=== PATIENT | female | born 1980 | race Two or more races ===

== ENCOUNTER 2017-10-10 03:53 | Observation (INO) | payer MEDICAID ==
[2017-10-10] MEDS ORDERED: IPRATROPIUM/ALBUTEROL 3 ML DEYVIAL ONE (04:00)
[2017-10-10] MEDS ORDERED: IPRATROPIUM/ALBUTEROL 3 ML DEYVIAL IH ONE (04:00)
[2017-10-10] MEDS ORDERED: ALBUTEROL 3 ML DEYVIAL ONE (04:09)
[2017-10-10] MEDS ORDERED: MAGNESIUM SULF 2 GM/WATER 50 ML BAG IV ONE (04:16)
[2017-10-10] MEDS ORDERED: ALBUTEROL 3 ML DEYVIAL IH ONE ×2 (04:17→05:30)
[2017-10-10] MEDS ORDERED: MAGNESIUM SULF 2 GM/WATER 50 ML IV ONE (04:17)
--- NOTE | 2017-10-10 05:34 | EDPHY ---
H & P Stated Complaint: ASTHMA EXACERBATION ALL DAY NOT BETTER WITH MDI ALBUTEROL Time Seen by Provider: 10/10/17 03:55 HPI/ROS: HPI The patient presents with concern for asthma exacerbation, presenting with shortness of breath for the last 1 day. The patient is brought in by ambulance after having wheezing with shortness of breath throughout the course of the day today, getting progressively worse. She has been using albuterol inhaler at home multiple times today without any improvement. She is unsure what her asthma triggers are. She was picked up by paramedics with a room air sat of 84% , improved with nebulizers. Received Solu-Medrol. She has a 1/2 pack per day smoker. She has been admitted to the hospital about 4-5 times for asthma exacerbation. She has never been intubated.. REVIEW OF SYSTEMS Constitutional: No fever, no chills. Eyes: No discharge. ENT: No sore throat. Cardiovascular: No chest pain, no palpitations. Respiratory: No cough, no shortness of breath. Gastrointestinal: No abdominal pain, no vomiting. Genitourinary: No hematuria. Musculoskeletal: No back pain. Skin: No rashes. Neurological: No headache. PMHx: History of asthma Soc Hx: 1/2 pack per day smoker PHYSICAL General Appearance: Alert, no distress Eyes: Pupils equal and round no pallor or injection ENT, Mouth: Mucous membranes moist Respiratory: Tachypneic, retractions are present, diminished breath sounds throughout with prolonged I to E time Cardiovascular: Regular rate and rhythm Gastrointestinal: Abdomen is soft and non-tender, no masses, bowel sounds normal Neurological: A&O, moves all extremities Skin: Warm and dry, no rashes Musculoskeletal: Neck is supple non tender Extremities: symmetrical, full range of motion Psychiatric: Patient is oriented X 3, there is no agitation Source: Patient Exam Limitations: No limitations - Personal History Current Tetanus/Diphtheria Vaccine: Yes Current Tetanus Diphtheria and Acellular Pertussis (TDAP): Yes Tetanus Vaccine Date: 2008 - Medical/Surgical History Hx Asthma: Yes Hx Chronic Respiratory Disease: No Hx Diabetes: No Hx Cardiac Disease: No Hx Renal Disease: No Hx Cirrhosis: No Hx Alcoholism: No Hx HIV/AIDS: No Hx Splenectomy or Spleen Trauma: No Other PMH: tubal ligation 2008, chronic back pain due to herniated disc - Social History Smoking Status: Light smoker Constitutional: Initial Vital Signs Temperature (C) 36.8 C 10/10/17 03:57 Heart Rate 121 H 10/10/17 03:57 Respiratory Rate 28 H 10/10/17 03:57 Blood Pressure 108/83 H 10/10/17 03:57 O2 Sat (%) 91 L 10/10/17 03:57 O2 Delivery Mode Nasal Cannula O2 (L/minute) 2 Allergies/Adverse Reactions: NSAIDS (Non-Steroidal Anti-Inflamma Allergy (Intermediate, Verified 10/10/17 04: 02) Home Medications: Medication Instructions Recorded Celexa 10/03/13 Albuterol Hfa Anes Only [Proair 11/11/13 Hfa Icu (RX)] Fluticasone/Salmeter 100/50Mcg 11/11/13 [Advair 100/50 (RX)] Acetaminophen [Tylenol Tablet] 1,000 mg PO Q6 PRN #30 tab 05/02/14 Medical Decision Making - Diagnostics EKG Interpretation: Chest x-ray single view shows hyperinflation with peribronchial thickening, interpreted by me, radiology interpretation is pending. Differential Diagnosis: 37-year-old female with history of asthma presents with shortness of breath and wheezing for the last 1 day. She has been using albuterol without any improvement. Room air sat was 84% per paramedics. She has been given a DuoNeb and Solu-Medrol. On exam, she is in mild respiratory distress with retractions and diminished breath sounds throughout. She will be started on a 2nd DuoNeb here. Differential diagnosis includes asthma exacerbation, pneumothorax, pneumonia, pulmonary embolism. The patient was observed with minimal improvement in her clinical condition. She was given additional albuterol with magnesium which helped her somewhat. She was able to rest though was still slightly tachypneic. Oxygen saturations are 95% on 2 L though she does desaturate when she is off of oxygen. Chest x-ray demonstrates hyperinflation without any pneumonia. Labs are unremarkable. Given her ongoing symptoms after 2 and 0.5 hr of monitoring I plan to admit her. On exam, she is still diminished throughout with wheezes present and mild tachypnea. I have discussed the case with the hospitalist Dr. Meza and we will admit her. Critical Care Time: CRITICAL CARE Critical care time spent by me, Dr. Riguzzi, exclusively with this patient was 30 minutes, exclusive of PA time and exclusive of procedures. The organ system at risk was respiratory and I gave magnesium, continuous albuterol nebulizer treatments, admitted the patient to prevent worsening of the patients condition. - Data Points Laboratory Results: Laboratory Results 10/10/17 03:55 10/10/17 03:55 10/10/17 10/10/17 10/10/17 03:55 03:55 03:55 WBC 12.23 10^3/uL H 10^3/uL (3.80-9.50) RBC 5.52 10^6/uL H 10^6/uL (4.18-5.33) Hgb 10.6 g/dL L g/dL (12.6-16.3) Hct 37.4 % L % (38.0-47.0) MCV 67.8 fL L fL (81.5-99.8) MCH 19.2 pg L pg (27.9-34.1) MCHC 28.3 g/dL L g/dL (32.4-36.7) RDW 16.5 % H % (11.5-15.2) Plt Count 530 10^3/uL H 10^3/uL (150-400) MPV 10.0 fL fL (8.7-11.7) Neut % (Auto) 61.9 % % (39.3-74.2) Lymph % (Auto) 21.4 % % (15.0-45.0) [place] % (Auto) 7.0 % % (4.5-13.0) Eos % (Auto) 8.0 % H % (0.6-7.6) Baso % (Auto) 1.5 % % (0.3-1.7) Nucleat RBC Rel Count 0.0 % % (0.0-0.2) Absolute Neuts (auto) 7.57 10^3/uL H 10^3/uL (1.70-6.50) Absolute Lymphs (auto) 2.62 10^3/uL 10^3/uL (1.00-3.00) Absolute Monos (auto) 0.85 10^3/uL H 10^3/uL (0.30-0.80) Absolute Eos (auto) 0.98 10^3/uL H 10^3/uL (0.03-0.40) Absolute Basos (auto) 0.18 10^3/uL H 10^3/uL (0.02-0.10) Absolute Nucleated RBC 0.00 10^3/uL 10^3/uL (0-0.01) Immature Gran % 0.2 % % (0.0-1.1) Immature Gran # 0.03 10^3/uL 10^3/uL (0.00-0.10) Platelet Estimate INCREASED H (ADEQ) Hypochromasia 2+ H Microcytic Cells 2+ H Smear Review By Pending D-Dimer 0.40 ug/mLFEU ug/mLFEU (0.00-0.50) Sodium 143 mEq/L mEq/L (135-145) Potassium 4.4 mEq/L mEq/L (3.5-5.2) Chloride 104 mEq/L mEq/L (97-110) Carbon Dioxide 25 mEq/l mEq/l (22-31) Anion Gap 14 mEq/L mEq/L (8-16) BUN 13 mg/dL mg/dL (7-23) Creatinine 0.7 mg/dL mg/dL (0.6-1.0) Estimated GFR > 60 Glucose 102 mg/dL H mg/dL (70-100) Calcium 9.4 mg/dL mg/dL (8.5-10.4) Total Bilirubin 0.7 mg/dL mg/dL (0.1-1.4) AST 33 IU/L IU/L (14-46) ALT 43 IU/L IU/L (9-52) Alkaline Phosphatase 72 IU/L IU/L (38-126) Total Protein 8.0 g/dL g/dL (6.3-8.2) Albumin 4.3 g/dL g/dL (3.5-5.0) Medications Given: Acetaminophen (Tylenol) 650 mg PO Q4HRS PRN PRN Reason: Pain, Mild/Fever, Can Take PO Stop: 04/08/18 06:33 Last Admin: 10/10/17 07:21 Dose: 650 mg Discontinued Medications Albuterol (Proventil Neb) 9 ml IH CONT ONE Stop: 10/10/17 04:18 Last Admin: 10/10/17 04:19 Dose: 9 ml Albuterol (Proventil Neb) 3 ml IH EDNOW ONE Stop: 10/10/17 05:31 Last Admin: 10/10/17 05:33 Dose: 3 ml Albuterol/Ipratropium (Duoneb) 3 ml IH EDNOW ONE Stop: 10/10/17 04:01 Last Admin: 10/10/17 04:07 Dose: 3 ml Magnesium Sulfate (Magnesium Sulf 2 Gm (Premix)) 50 mls @ 50 mls/hr IV EDNOW ONE Stop: 10/10/17 05:16 Last Admin: 10/10/17 04:19 Dose: 50 mls Departure - Departure
[2017-10-10 05:42] LABS: PLATELET COUNT 530 10^3/uL (150-400)
[2017-10-10] MEDS ORDERED: ONDANSETRON 4 MG/2 ML VIAL IVP PRN (06:34)
[2017-10-10] MEDS ORDERED: ONDANSETRON DISINTEGRATING 4 MG TAB PO PRN (06:34)
--- NOTE | 2017-10-10 06:56 | PDGENHP ---
History and Physical - Chief Complaint SOB - History of Present Illness 37 yo F w/ asthma p/w shortness of breath. Patient reports worsening around 3 days ago. She denies any infectious symptoms or sick contacts. She is a current , every day smoker and smokes about 1/2 PPD. She denies other drug use. She uses only albuterol for asthma control. When she is doing well, she has to use her albuterol inhaler every 4 or 5 hours. Over the last day she was using it every 30 minutes. She used to be on Advair in the past but stopped taking it for unclear reasons. History Information - Allergies/Home Medication List Allergies/Adverse Reactions: NSAIDS (Non-Steroidal Anti-Inflamma Allergy (Intermediate, Verified 10/10/17 04: 02) Home Medications: Celexa 10/03/13 [Last Taken Unknown] Albuterol Hfa Anes Only [Proair Hfa Icu (RX)] 11/11/13 [Last Taken Unknown] Fluticasone/Salmeter 100/50Mcg [Advair 100/50 (RX)] 11/11/13 [Last Taken Unknown] I have personally reviewed and updated: family history, medical history - Past Medical History asthma - Surgical History Reports: no pertinent surgical hx - Family History Positive for: asthma - Social History Smoking Status: Light smoker Review of Systems Review of Systems: ROS: 10pt was reviewed & negative except for what was stated in HPI & below Physical Exam Physical Exam: Temp Pulse Resp BP Pulse Ox 36.8 C 108 H 34 H 143/79 H 95 10/10/17 03:57 10/10/17 06:08 10/10/17 06:08 10/10/17 06:08 10/10/17 06:08 Constitutional: appears nourished, uncomfortable Eyes: PERRL, EOMI Ears, Nose, Mouth, Throat: moist mucous membranes, oral thrush Cardiovascular: no murmur, rub, or gallop, tachycardia Respiratory: no respiratory distress, expiratory wheeze (Diffuse) Gastrointestinal: normoactive bowel sounds, soft, non-tender abdomen Skin: warm, normal color Musculoskeletal: full muscle strength, no muscle tenderness Neurologic: AAOx3, CN II-XII Intact Psychiatric: interacting appropriately, not anxious Lab Data & Imaging Review 10/10/17 03:55 10/10/17 03:55 WBC 12.23 10^3/uL (3.80-9.50) H 10/10/17 03:55 RBC 5.52 10^6/uL (4.18-5.33) H 10/10/17 03:55 Hgb 10.6 g/dL (12.6-16.3) L 10/10/17 03:55 Hct 37.4 % (38.0-47.0) L 10/10/17 03:55 MCV 67.8 fL (81.5-99.8) L 10/10/17 03:55 MCH 19.2 pg (27.9-34.1) L 10/10/17 03:55 MCHC 28.3 g/dL (32.4-36.7) L 10/10/17 03:55 RDW 16.5 % (11.5-15.2) H 10/10/17 03:55 Plt Count 530 10^3/uL (150-400) H 10/10/17 03:55 MPV 10.0 fL (8.7-11.7) 10/10/17 03:55 Neut % (Auto) 61.9 % (39.3-74.2) 10/10/17 03:55 Lymph % (Auto) 21.4 % (15.0-45.0) 10/10/17 03:55 [place] % (Auto) 7.0 % (4.5-13.0) 10/10/17 03:55 Eos % (Auto) 8.0 % (0.6-7.6) H 10/10/17 03:55 Baso % (Auto) 1.5 % (0.3-1.7) 10/10/17 03:55 Nucleat RBC Rel Count 0.0 % (0.0-0.2) 10/10/17 03:55 Absolute Neuts (auto) 7.57 10^3/uL (1.70-6.50) H 10/10/17 03:55 Absolute Lymphs (auto) 2.62 10^3/uL (1.00-3.00) 10/10/17 03:55 Absolute Monos (auto) 0.85 10^3/uL (0.30-0.80) H 10/10/17 03:55 Absolute Eos (auto) 0.98 10^3/uL (0.03-0.40) H 10/10/17 03:55 Absolute Basos (auto) 0.18 10^3/uL (0.02-0.10) H 10/10/17 03:55 Absolute Nucleated RBC 0.00 10^3/uL (0-0.01) 10/10/17 03:55 Immature Gran % 0.2 % (0.0-1.1) 10/10/17 03:55 Immature Gran # 0.03 10^3/uL (0.00-0.10) 10/10/17 03:55 Platelet Estimate INCREASED (ADEQ) H 10/10/17 03:55 Hypochromasia 2+ H 10/10/17 03:55 Microcytic Cells 2+ H 10/10/17 03:55 D-Dimer 0.40 ug/mLFEU (0.00-0.50) 10/10/17 03:55 Sodium 143 mEq/L (135-145) 10/10/17 03:55 Potassium 4.4 mEq/L (3.5-5.2) 10/10/17 03:55 Chloride 104 mEq/L (97-110) 10/10/17 03:55 Carbon Dioxide 25 mEq/l (22-31) 10/10/17 03:55 Anion Gap 14 mEq/L (8-16) 10/10/17 03:55 BUN 13 mg/dL (7-23) 10/10/17 03:55 Creatinine 0.7 mg/dL (0.6-1.0) 10/10/17 03:55 Estimated GFR > 60 10/10/17 03:55 Glucose 102 mg/dL (70-100) H 10/10/17 03:55 Calcium 9.4 mg/dL (8.5-10.4) 10/10/17 03:55 Total Bilirubin 0.7 mg/dL (0.1-1.4) 10/10/17 03:55 AST 33 IU/L (14-46) 10/10/17 03:55 ALT 43 IU/L (9-52) 10/10/17 03:55 Alkaline Phosphatase 72 IU/L (38-126) 10/10/17 03:55 Total Protein 8.0 g/dL (6.3-8.2) 10/10/17 03:55 Albumin 4.3 g/dL (3.5-5.0) 10/10/17 03:55 Visualized and Interpreted Chest x-ray results: Yes Chest X-Ray results: no infiltrate Assessment & Plan Assessment: 37 yo F w/ asthma presents w/ acute exacerbation. Plan: 1. Asthma with acute exacerbation - Likely as a result of poor baseline control (uses albuterol QID when feeling well) and continued tobacco use (1/2 PPD). Over the last 24 hours she was using her albuterol inhaler q30 min. She denies infectious symptoms or sick contacts. Her work of breathing is significantly improved after continuous nebulization in the ED. - Admit for observation - Albuterol QID WILL + q2h PRN - Prednisone 40 mg qD - I recommended she see her PCP to restart controller therapy noting poor baseline control 2. AHRF - Mild, only requiring 2 L/min via NC currently. Diet - Regular Code - Full Ppx - Low risk Dispo - Admit under observation status
[2017-10-10] MEDS ORDERED: ACETAMINOPHEN 500 MG TAB PO ONE (07:17)
[2017-10-10] MEDS: ACETAMINOPHEN 325 MG TAB PO PRN ×2 (07:21→14:43)
[2017-10-10] MEDS: ALBUTEROL 3 ML DEYVIAL IH SCH ×4 (08:20→22:04)
[2017-10-10] MEDS: predniSONE 20 MG TAB PO SCH (09:17)
--- NOTE | 2017-10-10 09:25 | ASMTCMCOM ---
CM Note CM Note Notes: Chart reviewed for discharge planning purposes. 37 year old female admitted with exacerbation of asthma symptoms. Likely no needs at discharge, Case management available should needs arise. Date Signed: 10/10/2017 09:25 AM Electronically Signed By:Radha Fields RN
[2017-10-10] MEDS: ALBUTEROL 3 ML DEYVIAL IH PRN ×2 (19:44→22:32)
--- NOTE | 2017-10-10 20:49 | HOSPPROG ---
Hospitalist Progress Note Assessment/Plan: # Acute Asthma exacerbation - pt remains wheezy and tachypneic on exam oxygen saturations 93% on 1L CXR (personally reviewed and interpreted) no infiltrates - - cont steroids - cont inhaled beta agonsits - cont supportive care # AHRF - 2/2 asthma exacerbation - continue above care # Acute leukocytosis - suspect 2/2 viral respiratory illness - recheck in am # amphetamine positive drug screen # proph - lovenox # diet- regular # dispo - > 2mn a requiring ongoing monitoring for respiratory failure I have discussed the case with RN - continue current care RR elevated Subjective: exhausted Objective: Vital Signs Temp Pulse Resp BP Pulse Ox 37.2 C 106 H 20 134/97 H 95 10/10/17 19:29 10/10/17 19:29 10/10/17 19:29 10/10/17 19:29 10/10/17 19:29 10/09/17 10/10/17 10/11/17 05:59 05:59 05:59 Intake Total 640 Balance 640 - Physical Exam Constitutional: appears nourished Eyes: anicteric sclera Ears, Nose, Mouth, Throat: moist mucous membranes Cardiovascular: regular rate and rhythym Respiratory: expiratory wheeze Gastrointestinal: normoactive bowel sounds Genitourinary: no bladder fullness Skin: warm Musculoskeletal: No asymmetric calves Neurologic: AAOx3 Psychiatric: interacting appropriately Lymph, Heme, Immunologic: no cervical LAD ICD10 Worksheet Patient Problems: Problems Problem Status Onset Asthma exacerbation Acute - ICD10 Problem Qualifiers (1) Asthma exacerbation
[2017-10-11] MEDS: ALBUTEROL 3 ML DEYVIAL IH SCH ×2 (04:09→09:25)
[2017-10-11 07:54] VITALS: BP 128/64
[2017-10-11] MEDS: predniSONE 20 MG TAB PO SCH (08:32)
[2017-10-11] MEDS: ACETAMINOPHEN 325 MG TAB PO PRN (08:34)
[2017-10-11] MEDS ORDERED: traMADol 50 MG TAB PO PRN (10:32)
[2017-10-11] MEDS ORDERED: ALBUTEROL 60 PUFFS/8 GM MDI IH PRN (11:18)
--- NOTE | 2017-10-11 17:37 | GDS ---
[f rep st] DISCHARGE SUMMARY DISCHARGE DIAGNOSES: 1. Acute asthma exacerbation. 2. Acute hypoxic respiratory failure secondary to asthma. 3. Suspected viral upper respiratory infection. 4. Substance abuse. HISTORY OF PRESENT ILLNESS: A 37-year-old female with a history of asthma who presents with acute sh ortness of breath. For details of patient's initial presentation, please see the history and physica l dated 10/10/2017. CONSULTATIVE SERVICES: None. PROCEDURES: None. HOSPITAL COURSE: Acute asthma exacerbation, presumed viral trigger. Chest x-ray was checked with no infiltrates. Patient was admitted, initiated on steroid burst, inhaled beta agonists, and supportiv e care as she did have marked improvement in her symptoms overnight. The morning after presentation, patient was weaned successfully off supplemental oxygen. She is being discharged with a prednisone burst, no taper and ongoing beta agonist use as needed. MEDICATIONS AT THE TIME OF TRANSFER: Please reference the med rec printed on 10/11/2017. FOLLOWUP APPOINTMENTS: Include with her primary care at the completion of her prednisone burst for h er first post disposition followup. PENDING STUDIES: At the time of this dictation are none. TIME SPENT: I spent greater than 30 minutes in the planning and coordination of this discharge. /[id number]/MODL
== END 2017-10-11 11:30 | disposition home or self-care (01) ==
LOC: EDUNIT# → F1N 08:16
PROVIDERS: ADMIT Student in an Organized Health Care Education/Training Program; ATTEND Hospitalist
DX: J45.901 Unspecified asthma with (acute) exacerbation (principal); J96.01 Acute respiratory failure with hypoxia; D72.829 Elevated white blood cell count, unspecified; F15.10 Other stimulant abuse, uncomplicated; F17.210 Nicotine dependence, cigarettes, uncomplicated; Z86.711 Personal history of pulmonary embolism
CPT/HCPCS: 71045; G0378; 80305; J3475; J7512; J7613

== ENCOUNTER 2017-11-21 20:54 | Emergency (ER) | payer MEDICAID ==
[2017-11-21] MEDS ORDERED: predniSONE 20 MG TAB PO ONE (21:05)
[2017-11-21] MEDS ORDERED: ALBUTEROL 3 ML DEYVIAL ONE (21:05)
[2017-11-21] MEDS ORDERED: ALBUTEROL 3 ML DEYVIAL IH ONE ×2 (21:05→21:41)
[2017-11-21] MEDS ORDERED: ALBUTEROL INH PREPACK MDI TAKEHOME ONE (21:07)
--- NOTE | 2017-11-21 21:07 | EDPHY ---
H & P Time Seen by Provider: 11/21/17 21:01 HPI/ROS: CHIEF COMPLAINT: Shortness of breath HISTORY OF PRESENT ILLNESS: Patient has chronic back pain and took nonsteroidal tonight because Tylenol was not working. She presents with worsening asthma not helped by her DuoNeb at home. She was last admitted on steroids in September at our facility and discharged on 10/11. Associated with a little bit of a cough, mostly wheezing. Symptoms moderate to severe. Worse with exertion or lying flat. REVIEW OF SYSTEMS: Eye: no change in vision ENT: no sore throat Cardiac: no chest pain or syncope Pulmonary: HPI,no hemoptysis Abdomen: no vomiting, diarrhea, abdominal pain Musculoskeletal: HPI, typical back pain for her Skin: no rash Neuro: no headache, no weakness or numbness in legs Constitutional: no fever : no urinary symptoms A comprehensive 10 point review of systems is otherwise negative aside from elements mentioned in the history of present illness. PAST MEDICAL HISTORY: Asthma, chronic back pain. Discharge summary dated 2017 notes substance abuse Social history: Continues to smoke alcohol General Appearance: Alert and conversant, cooperative. Eyes: No scleral icterus. ENT, Mouth: Normal mucous membranes. No angioedema Respiratory: No stridor, bilateral expiratory wheezing, increased slightly work of breathing. Cardiovascular: Regular rate and rhythm. Gastrointestinal: Abdomen is soft and non tender. Neurological: Alert, face symmetric, normal motor and sensory in extremities. Patellar reflexes 1+ symmetric and toes downgoing, straight leg raising negative bilaterally. Skin: Warm and dry, no rashes. Musculoskeletal: No peripheral edema. No leg swelling or calf tenderness. Psychiatric: Not agitated. Emergency Department course/MDM: Albuterol neb x3, oral prednisone 60 mg discussed and consented. 2140: Reexamined, still a little bit wheezy but she feels a lot better, speaking in full sentences, not in respiratory distress. Repeat albuterol neb, if still feels better plan to discharge with prednisone prescription and MDI. 2015: stable for DC. Smoking Status: Light smoker Constitutional: Initial Vital Signs Temperature (C) 36.4 C 11/21/17 21:01 Heart Rate 100 11/21/17 21:01 Respiratory Rate 22 H 11/21/17 21:01 Blood Pressure 137/73 H 11/21/17 21:01 O2 Sat (%) 93 11/21/17 21:01 O2 Delivery Mode Room Air Allergies/Adverse Reactions: NSAIDS (Non-Steroidal Anti-Inflamma Allergy (Intermediate, Verified 11/21/17 21: 00) Home Medications: Medication Instructions Recorded Albuterol [Proventil Inhaler HFA 1 - 2 puffs IH Q4H #1 mdi 10/11/17 (*)] predniSONE 40 mg PO DAILY #6 tablet 10/11/17 predniSONE [prednisone 20mg (RX)] 20 mg PO Q12 #15 tab 11/21/17 Medical Decision Making Differential Diagnosis: Differential diagnosis considered for shortness of breath including but not limited to pulmonary infectious process, COPD, asthma, pulmonary embolus and congestive heart failure. - Data Points Medications Given: Discontinued Medications Albuterol (Proventil Neb) 9 ml IH EDNOW ONE Stop: 11/21/17 21:06 Last Admin: 11/21/17 21:06 Dose: 9 ml Albuterol (Proventil Neb) 9 ml IH EDNOW ONE Stop: 11/21/17 21:42 Last Admin: 11/21/17 21:48 Dose: 9 ml Albuterol Sulfate (Proventil Inh Prepack) 1 mdi TAKEHOME EDNOW ONE Stop: 11/21/17 21:08 Last Admin: 11/21/17 22:13 Dose: 1 mdi Prednisone (Prednisone) 60 mg PO EDNOW ONE Stop: 11/21/17 21:06 Last Admin: 11/21/17 21:08 Dose: 60 mg Departure - Departure Disposition: Home, Routine, Self-Care Clinical Impression: Asthma exacerbation Qualifiers: Asthma severity: moderate Asthma persistence: unspecified Qualified Code(s): J45.901 - Unspecified asthma with (acute) exacerbation Condition: Good Instructions: Albuterol (By breathing), Asthma (ED) Referrals: DONNA BOYER [Primary Care Provider] - 2-3 days, call for appt. Prescriptions: predniSONE [prednisone 20mg (RX)] 20 mg PO Q12 #15 tab
[2017-11-21 22:24] VITALS: BP 134/70
== END 2017-11-21 22:22 | disposition home or self-care (01) ==
DX: J45.901 Unspecified asthma with (acute) exacerbation (principal); F17.200 Nicotine dependence, unspecified, uncomplicated
CPT/HCPCS: J7512; J7613

== ENCOUNTER 2018-07-29 22:20 | Emergency (ER) | payer MEDICAID ==
--- NOTE | 2018-07-29 22:42 | EDPHY ---
H & P Stated Complaint: ASTHMA EXACERBATION Time Seen by Provider: 07/29/18 22:41 HPI/ROS: HPI CHIEF COMPLAINT: Acute asthma exacerbation HISTORY OF PRESENT ILLNESS: This is a 38-year-old female she presents emergency room acute asthma exacerbation. Patient states that she went through her inhaler very quickly today. She has a previous history of being seen here in emergency room and actually taking care by myself for acute asthma exacerbation and hypoxic respiratory failure requiring intubation. 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 She presents emergency room with minor wheezes with good air movement. No distress. She is out of her inhaler. She denies any chest pain. Past Medical History: Significant medical history for asthma, previous intubation for asthma. Past Surgical History: No recent surgical history Social History: Denies daily use drugs alcohol tobacco. States she has not done methamphetamine in 2 months. Family History: Noncontributory ROS REVIEW OF SYSTEMS: 10 Systems were reviewed and negative with the exception of the elements mentioned in the history of present illness. Exam Constitutional triage nursing summary reviewed, vital signs reviewed, awake/ alert. Vital signs stable triage. Eyes normal conjunctivae and sclera, EOMI, PERRLA. HENT normal inspection, atraumatic, moist mucus membranes, no epistaxis, neck supple/ no meningismus, no raccoon eyes. Respiratory wheezing throughout all lung smith. No distress Cardiovascular rate normal, regular rhythm, no murmur, no edema, distal pulses normal. Gastrointestinal soft, non-tender, no rebound, no guarding, normal bowel sounds, no distension, no pulsatile mass. Genitourinary no CVA tenderness. Musculoskeletal no midline vertebral tenderness, full range of motion, no calf swelling, no tenderness of extremities, no meningismus, good pulses, neurovascularly intact. Skin pink, warm, & dry, no rash, skin atraumatic. Neurologic awake, alert and oriented x 3, AAOx3, moves all 4 extremities equally, motor intact, sensory intact, CN II-XII intact, normal cerebellar, normal vision, normal speech. Psychiatric normal mood/affect. Heme/Lymph/Immune no lymphadenopathy. Differential Diagnosis: Includes but is not limited to in a particular order acute asthma exacerbation, pneumonia, reactive airway disease, viral syndrome, URI Medical Decision Making: Plan for this patient IV establishment IV fluid bolus , IV Solu-Medrol, DuoNeb breathing treatment, chest x-ray and re-evaluation. Re-evaluation: ED x-ray chest one view negative for acute cardiopulmonary disease. No pneumonia or pneumothorax. Image interpreted by myself. 2354: Patient re-evaluated this time. Resting comfortably no acute distress. Re-examination of her lungs clear good air movement, no wheezing. Feeling much better. She states she would like to go home. No hypoxia no labored breathing. Albuterol take-home inhaler provided Prescription for prednisone and albuterol. Return precautions discussed. Return to the emergency room if worsening shortness of breath, wheezing, not doing well. Source: Patient - Personal History Current Tetanus Diphtheria and Acellular Pertussis (TDAP): Yes Tetanus Vaccine Date: 2008 - Medical/Surgical History Hx Asthma: Yes Hx Chronic Respiratory Disease: No Hx Diabetes: No Hx Cardiac Disease: No Hx Renal Disease: No Hx Cirrhosis: No Hx Alcoholism: No Hx HIV/AIDS: No Hx Splenectomy or Spleen Trauma: No Other PMH: tubal ligation 2008, chronic back pain due to herniated disc, ASTHMA - Social History Smoking Status: Light smoker Constitutional: Initial Vital Signs Temperature (C) 36.3 C 07/29/18 22:31 Heart Rate 92 07/29/18 22:31 Respiratory Rate 20 07/29/18 22:31 Blood Pressure 126/67 H 07/29/18 22:31 O2 Sat (%) 96 07/29/18 22:31 O2 Delivery Mode Room Air Allergies/Adverse Reactions: NSAIDS (Non-Steroidal Anti-Inflamma Allergy (Intermediate, Verified 11/21/17 21: 00) aspirin Allergy (Verified 07/29/18 22:30) gabapentin Allergy (Verified 07/29/18 22:30) Home Medications: Medication Instructions Recorded Albuterol [Proventil Inhaler HFA 1 - 2 puffs IH Q4H #1 mdi 02/12/18 (*)] Albuterol [Proventil Inhaler HFA 1 - 2 puffs IH Q4H #1 mdi 07/29/18 (*)] predniSONE 60 mg PO DAILY #9 tab 07/29/18 Medical Decision Making - Data Points Laboratory Results: Laboratory Results 07/29/18 22:50 07/29/18 22:50 07/29/18 07/29/18 22:50 22:50 WBC 9.32 10^3/uL 10^3/uL (3.80-9.50) RBC 4.50 10^6/uL 10^6/uL (4.18-5.33) Hgb 8.5 g/dL L g/dL (12.6-16.3) Hct 29.8 % L % (38.0-47.0) MCV 66.2 fL L fL (81.5-99.8) MCH 18.9 pg L pg (27.9-34.1) MCHC 28.5 g/dL L g/dL (32.4-36.7) RDW 17.9 % H % (11.5-15.2) Plt Count 490 10^3/uL H 10^3/uL (150-400) MPV 9.6 fL fL (8.7-11.7) Neut % (Auto) 42.5 % % (39.3-74.2) Lymph % (Auto) 30.9 % % (15.0-45.0) Gaston % (Auto) 9.3 % % (4.5-13.0) Eos % (Auto) 15.2 % H % (0.6-7.6) Baso % (Auto) 1.9 % H % (0.3-1.7) Nucleat RBC Rel Count 0.0 % % (0.0-0.2) Absolute Neuts (auto) 3.95 10^3/uL 10^3/uL (1.70-6.50) Absolute Lymphs (auto) 2.88 10^3/uL 10^3/uL (1.00-3.00) Absolute Monos (auto) 0.87 10^3/uL H 10^3/uL (0.30-0.80) Absolute Eos (auto) 1.42 10^3/uL H 10^3/uL (0.03-0.40) Absolute Basos (auto) 0.18 10^3/uL H 10^3/uL (0.02-0.10) Absolute Nucleated RBC 0.00 10^3/uL 10^3/uL (0-0.01) Immature Gran % 0.2 % % (0.0-1.1) Immature Gran # 0.02 10^3/uL 10^3/uL (0.00-0.10) Platelet Estimate ADEQUATE (ADEQ) Hypochromasia 1+ H Microcytic Cells 2+ H Acanthocytes (Spur) 1+ H Smear Review By Pending Sodium 138 mEq/L mEq/L (135-145) Potassium 4.3 mEq/L mEq/L (3.5-5.2) Chloride 106 mEq/L mEq/L (97-110) Carbon Dioxide 23 mEq/l mEq/l (22-31) Anion Gap 9 mEq/L mEq/L (6-14) BUN 16 mg/dL mg/dL (7-23) Creatinine 0.8 mg/dL mg/dL (0.6-1.0) Estimated GFR > 60 Glucose 91 mg/dL mg/dL (70-100) Calcium 9.5 mg/dL mg/dL (8.5-10.4) Medications Given: Discontinued Medications Albuterol/Ipratropium (Duoneb) 3 ml IH EDNOW ONE Stop: 07/29/18 22:47 Last Admin: 07/29/18 22:59 Dose: 3 ml Sodium Chloride (Ns) 1,000 mls @ 0 mls/hr IV ONCE ONE; Wide Open PRN Reason: Protocol Stop: 07/29/18 22:47 Last Admin: 07/29/18 23:00 Dose: 1,000 mls Methylprednisolone Sodium Succinate (Solu-Medrol) 125 mg IVP EDNOW ONE Stop: 07/29/18 22:47 Last Admin: 07/29/18 23:01 Dose: 125 mg Departure - Departure Disposition: Home, Routine, Self-Care Clinical Impression: Asthma Qualifiers: Asthma severity: mild Asthma persistence: intermittent Asthma complication type : with acute exacerbation Qualified Code(s): J45.21 - Mild intermittent asthma with (acute) exacerbation Condition: Good Instructions: Asthma (ED) Additional Instructions: 1. Return emergency room if you have worsening symptoms includes worsening shortness of breath, worsening wheezing. 2. Albuterol inhaler 2 puffs every 4 hr as needed for shortness of breath and asthma. 3. Steroids as prescribed 4. Return if worse. Referrals: NONE *PRIMARY CARE P,. [Primary Care Provider] - As per Instructions [facility] [Clinic] - As per Instructions Prescriptions: Albuterol [Proventil Inhaler HFA (*)] 1 - 2 puffs IH Q4H #1 mdi predniSONE 60 mg PO DAILY #9 tab
[2018-07-29] MEDS ORDERED: NS 1,000 ML IV ONE (22:46)
[2018-07-29] MEDS ORDERED: methylPREDNISolone SOD SUCC 125 MG/2 ML VIAL IVP ONE (22:46)
[2018-07-29] MEDS ORDERED: IPRATROPIUM/ALBUTEROL 3 ML DEYVIAL IH ONE (22:46)
[2018-07-29 23:05] LABS: PLATELET COUNT 490 10^3/uL (150-400)
[2018-07-29] MEDS ORDERED: ALBUTEROL INH PREPACK MDI TAKEHOME ONE (23:54)
[2018-07-29 23:56] VITALS: BP 140/62
== END 2018-07-30 00:10 | disposition home or self-care (01) ==
DX: J45.21 Mild intermittent asthma with (acute) exacerbation (principal); E86.9 Volume depletion, unspecified
CPT/HCPCS: 96374; J2930